=== PATIENT | female | born 1960 | race Caucasian/White ===

== ENCOUNTER 2018-04-08 09:20 | Emergency (ER) | payer MEDICAID ==
[~2018-04-08] VITALS: Ht 165.1 cm; Wt 95.0 kg
[~2018-04-08 09:20] MED LIST: ALBU18HF2 INH; ATI1T PO; BECL8.7A7 INH; ESTR10TA VG; LAMO100T2 PO; METF500T PO; SIMV40TA PO; VENL75TA4 PO
[2018-04-08] MEDS ORDERED: LORazepam 2 mg/ml vial IV ONE (09:45)
[2018-04-08 10:10] LABS: BASOPHILS % (AUTO) 0.4 % (0-1); EOSINOPHILS % (AUTO) 0.4 % (0-6); HEMATOCRIT 46.1 % (35.0-45.0); HEMOGLOBIN 15.7 g/dl (12.0-16.0); LYMPHOCYTES # (AUTO) 1.9 X10'3 (1.1-4.8); LYMPHOCYTES % (AUTO) 25.5 % (21-51); MEAN CORPUSCULAR HEMOGLOBIN 30.9 PG (27.0-31.0); MEAN PLATELET VOLUME 8.9 FL (7.4-10.4); MONOCYTES # (AUTO) 0.4 X10'3 (0-0.9); MONOCYTES % (AUTO) 4.8 % (2-12); NEUTROPHILS # (AUTO) 5.2 X10'3 (1.8-7.7); NEUTROPHILS % (AUTO) 68.9 % (42-75); PLATELET COUNT 174 X10'3 (140-440); RED BLOOD COUNT 5.07 X10'6 (4.20-5.60); RED CELL DISTRIBUTION WIDTH 13.1 % (11.5-14.5); WHITE BLOOD COUNT 7.6 X10'3 (4.5-11.0)
[2018-04-08 10:19] LABS: ALANINE AMINOTRANSFERASE 33 U/L (12-78); ALBUMIN 4.3 G/DL (3.4-5.0); ALBUMIN/GLOBULIN RATIO 1.3 (1.1-1.5); ALKALINE PHOSPHATASE 93 IU/L (46-116); ANION GAP 12 (8-16); ASPARTATE AMINO TRANSFERASE 29 U/L (10-37); BILIRUBIN,TOTAL 0.4 MG/DL (0.1-1.0); BLOOD UREA NITROGEN 19 MG/DL (7-18); BUN/CREATININE RATIO 26.4 (6.6-38.0); CALCIUM 9.4 MG/DL (8.5-10.1); CHLORIDE 104 MMOL/L (99-107); CREATININE 0.72 MG/DL (0.40-0.90); GLUCOSE 105 MG/DL (70-104); SODIUM 142 MMOL/L (135-145); TOTAL CARBON DIOXIDE 25.9 MMOL/L (24-32); TOTAL PROTEIN 7.6 G/DL (6.4-8.2); eGFR 83 ML/MIN
[2018-04-08] MEDS ORDERED: hydrOXYzine 10 MG tablet PO PRN (10:45)
[2018-04-08 13:25] VITALS: BP 117/64
== END 2018-04-08 13:30 | disposition home or self-care (01) ==
LOC: ER 09:20
DX: F41.9 Anxiety disorder, unspecified (principal); R06.02 Shortness of breath; E78.00 Pure hypercholesterolemia, unspecified; E11.9 Type 2 diabetes mellitus without complications; F12.90 Cannabis use, unspecified, uncomplicated; Z90.49 Acquired absence of other specified parts of digestive tract; Z90.710 Acquired absence of both cervix and uterus; Z88.8 Allergy status to other drugs, medicaments and biological substances; Z79.899 Other long term (current) drug therapy
CPT/HCPCS: 36415; 71045; 80053; 85025; 93005; 96374; 99285; J2060; 84484

== ENCOUNTER 2021-09-07 06:51 | Inpatient (IN) | payer MEDICAID ==
[2021-09-02 13:53] LABS: BASOPHILS # (AUTO) 0.1 X10'3 (0-0.2); BASOPHILS % (AUTO) 0.6 % (0-1); EOSINOPHILS % (AUTO) 0.3 % (0-6); LYMPHOCYTES # (AUTO) 2.6 X10'3 (1.1-4.8); LYMPHOCYTES % (AUTO) 31.5 % (21-51); MEAN CORPUSCULAR HEMOGLOBIN 31.9 PG (27.0-31.0); MEAN CORPUSCULAR HGB CONC 34.6 g/dL (33.0-36.5); MEAN CORPUSCULAR VOLUME 92.4 FL (78-98); MEAN PLATELET VOLUME 8.4 FL (7.4-10.4); MONOCYTES # (AUTO) 0.5 X10'3 (0-0.9); MONOCYTES % (AUTO) 6.4 % (2-12); NEUTROPHILS # (AUTO) 5.1 X10'3 (1.8-7.7); NEUTROPHILS % (AUTO) 61.2 % (42-75); PRE OP HEMATOCRIT 48.1 % (35.0-45.0); PRE OP HEMOGLOBIN 16.6 g/dL (12.0-16.0); PRE OP PLATELET COUNT 159 X10'3 (140-440); RED CELL DISTRIBUTION WIDTH 12.5 % (11.5-14.5)
[2021-09-02 14:16] LABS: ALBUMIN 4.6 G/DL (3.4-5.0); ALBUMIN/GLOBULIN RATIO 1.7 (1.1-1.5); ALKALINE PHOSPHATASE 105 IU/L (46-116); BLOOD UREA NITROGEN 13 MG/DL (7-18); BUN/CREATININE RATIO 17.3 (6.6-38.0); CHLORIDE 102 MMOL/L (99-107); CREATININE 0.75 MG/DL (0.40-0.90); PRE OP ALT 42 U/L (30-65); PRE OP ANION GAP 12 (8-16); PRE OP AST 29 U/L (10-37); PRE OP BILIRUB, TOTAL 0.3 MG/DL (0.0-1.0); PRE OP GLUCOSE 172 MG/DL (70-104); PRE OP SODIUM 140 MMOL/L (135-145); TOTAL PROTEIN 7.3 G/DL (6.4-8.2); eGFR 79 ML/MIN
[~2021-09-07] VITALS: Ht 165.1 cm; Wt 112.0 kg
[2021-09-07] VITALS (21 sets, daily range): BP systolic 90–125; BP diastolic 38–87
[2021-09-07] MEDS: potassium cl 20mEq in 1/2 NS 1,000 ML IV SCH ×2 (06:50→14:50)
[~2021-09-07 06:51] MED LIST changes: -ATI1T PO; -BECL8.7A7 INH; -ESTR10TA VG; +FLUO20CA39 PO; +GABA600T13 PO; +HYDROmorphone 1 mg/ml syringe IV PRN; +HYDROmorphone inj. 0.5 MG/0.5 ML DISP.SYRIN IV PRN; -METF500T PO; +SIMV-42 PO; -SIMV40TA PO; -VENL75TA4 PO; +acetaminophen 325mg tablet PO ONE; +acetaminophen 325mg tablet PO PRN; +bisacodyl 10mg suppository rectal RC PRN; +cefazolin/dext.iso 2gm/50ml IV ONE; +celeCOXIB 100mg capsule PO ONE; +diphenhydrAMINE 25mg capsule PO PRN; +famotidine 20mg tablet PO ONE; +gabapentin 300mg capsule PO ONE; +magnesium hydroxide 30ml (MOM) UD suspension PO PRN; +metoclopramide 5 mg/ml inj IV ONE; +ondansetron/PF 4mg/2ml inj IV PRN; +oxyCODONE SR 10mg (sust. release) tab -2 tabs (20mg) PO ONE; +oxyCODONE/APAP 10/325mg tablet PO PRN; +ringers solution, lacted 1,000 ML IV SCH; +tranexamic acid inj. 1,000 MG in 0.7% saline 100 ML PMX IV ONE; +vancomycin 1,500 MG in NS 300ml IV soln IV ONE
[2021-09-07] MEDS: lamoTRIgine 100mg tablet PO SCH ×2 (07:00→17:54)
[2021-09-07] MEDS: albuterol 2.5 MG/3 ML nebule NEB SCH ×2 (09:00→23:09)
[2021-09-07] MEDS ORDERED: morphine 2 MG/ML inj. syringe IV PRN (10:30)
[2021-09-07] MEDS ORDERED: proCHLORperazine 10 MG/2 ml inj IV PRN (10:30)
[2021-09-07] MEDS ORDERED: ondansetron/PF 4mg/2ml inj IV PRN (10:30)
[2021-09-07] MEDS ORDERED: ringers solution, lacted 1,000 ML IV SCH (10:30)
[2021-09-07] MEDS ORDERED: meperidine/PF 25mg/ml syringe IV PRN ×3 (10:30)
[2021-09-07] MEDS ORDERED: morphine 4 MG/ML inj SYRINge IV PRN (10:30)
[2021-09-07] MEDS ORDERED: epiNEPHrine 1 mg/ml inj ONE (11:11)
[2021-09-07] MEDS ORDERED: ketorolac trometh. 30mg/ml inj. ONE (11:11)
[2021-09-07] MEDS ORDERED: ROPIVAcaine 0.5% (5mg/ml) 30ml vial ONE ×2 (11:12→12:35)
[2021-09-07] MEDS ORDERED: cloNIDine hcl/PF 100mcg/ml inj ONE (11:12)
[2021-09-07] MEDS ORDERED: FENTANYL CITRATE/PF 50 MCG/1 ML VIAL ONE (11:33)
[2021-09-07] MEDS ORDERED: MIDAZolam 1 MG/ML 5ML VIAL ONE (11:33)
[2021-09-07] MEDS ORDERED: diphenhydrAMINE 50 mg/ml inj ONE (11:44)
[2021-09-07] MEDS ORDERED: vancomycin 1,000mg inj ONE (12:10)
[2021-09-07] MEDS ORDERED: dexamethasone sod phosphate 4mg/ml inj. ONE (12:35)
[2021-09-07] MEDS ORDERED: ROPIVAcaine 0.2%/PF PUMP/bolus 545 ML ADDCANAL SCH (12:40)
[2021-09-07] MEDS ORDERED: ROPIVAcaine 0.2% (10 MG/5 ML) BOLUS INJECTION ADDCANAL PRN (12:40)
[2021-09-07] MEDS ORDERED: tranexamic acid 1gm/0.7% sal. 100 ML IV ONE (15:30)
--- NOTE | 2021-09-07 16:25 | NUR ---
PATIENT HAS MET ALL CRITERIA FOR TRANSFER TO THE SURGICAL/[facility]/PCU/ORTHO/ICU FLOOR. VSS. DRESSINGS INTACT. BED LOW, CALL LIGHT PRESENT AND 2 RAILS UP. RN PRESENT TO ACCEPT CARE OF PATIENT AND REPORT HAS BEEN CALLED. ALL QUESTIONS ANSWERED TO ACCEPTING MIC JORD[facility]. ONE BAG OF BELONGINGS SENT WITH PATIENT. Addendum: 09/07/21 at 1652 by Pranay Duenas RN RN Amended: Links added.
--- NOTE | 2021-09-07 16:59 | NUR ---
cell phone returned to pt via osiel morales
[2021-09-07] MEDS: ceFAZolin 2gm in dextrose, iso 50 ML IV SCH (18:57)
[2021-09-07] MEDS: gabapentin 300mg capsule PO SCH (20:38)
[2021-09-07] MEDS: ascorbic acid 500mg tablet PO SCH (20:38)
[2021-09-07] MEDS: oxyCODONE/APAP 10/325mg tablet PO PRN (20:39)
[2021-09-07] MEDS: FLUoxetine 20mg capsule PO SCH (20:39)
[2021-09-07] MEDS ORDERED: atorvastatin 10mg tablet PO SCH (21:00)
[2021-09-07] MEDS ORDERED: sennosides 8.6mg tablet PO SCH (21:00)
[2021-09-08] MEDS: ceFAZolin 2gm in dextrose, iso 50 ML IV SCH (02:21)
[2021-09-08] MEDS: potassium cl 20mEq in 1/2 NS 1,000 ML IV SCH (02:21)
[2021-09-08] MEDS: oxyCODONE/APAP 10/325mg tablet PO PRN ×2 (03:17→08:36)
[2021-09-08 06:23] LABS: BASOPHILS % (AUTO) 0.1 % (0-1); EOSINOPHILS % (AUTO) 0 % (0-6); HEMATOCRIT 40.3 % (35.0-45.0); HEMOGLOBIN 14.3 g/dl (12.0-16.0); LYMPHOCYTES # (AUTO) 1.1 X10'3 (1.1-4.8); LYMPHOCYTES % (AUTO) 11.8 % (21-51); MEAN CORPUSCULAR HEMOGLOBIN 32.9 PG (27.0-31.0); MEAN CORPUSCULAR HGB CONC 35.4 g/dL (33.0-36.5); MEAN CORPUSCULAR VOLUME 93.1 FL (78-98); MEAN PLATELET VOLUME 9.1 FL (7.4-10.4); MONOCYTES # (AUTO) 0.6 X10'3 (0-0.9); MONOCYTES % (AUTO) 6.6 % (2-12); NEUTROPHILS # (AUTO) 7.6 X10'3 (1.8-7.7); NEUTROPHILS % (AUTO) 81.5 % (42-75); PLATELET COUNT 139 X10'3 (140-440); RED BLOOD COUNT 4.33 X10'6 (4.20-5.60); RED CELL DISTRIBUTION WIDTH 12.5 % (11.5-14.5); WHITE BLOOD COUNT 9.4 X10'3 (4.5-11.0)
--- NOTE | 2021-09-08 06:30 | NUR ---
Problems reprioritized. Patient report given, questions answered & plan of care reviewed with BEN HAILE.
--- NOTE | 2021-09-08 06:49 | NUR ---
Patient in room [facility]. I have received report from Mary Ann HAILE and had the opportunity to ask questions and assume patient care.
[2021-09-08 06:58] LABS: ANION GAP 9 (8-16); CHLORIDE 103 MMOL/L (99-107); POTASSIUM 4.5 MMOL/L (3.5-5.1); SODIUM 138 MMOL/L (135-145); TOTAL CARBON DIOXIDE 26.1 MMOL/L (24-32)
[2021-09-08 08:00] VITALS: BP 125/90
[2021-09-08] MEDS ORDERED: multivitamins, therapeutics tablet PO SCH (08:00)
[2021-09-08] MEDS ORDERED: aspirin 325mg tablet PO SCH (08:30)
[2021-09-08] MEDS: gabapentin 300mg capsule PO SCH (08:30)
[2021-09-08] MEDS: FLUoxetine 20mg capsule PO SCH (08:31)
[2021-09-08] MEDS: lamoTRIgine 100mg tablet PO SCH (08:32)
[2021-09-08] MEDS: ascorbic acid 500mg tablet PO SCH (08:34)
[2021-09-08] MEDS: albuterol 2.5 MG/3 ML nebule NEB SCH (08:52)
--- NOTE | 2021-09-08 08:53 | NUR ---
PT REFUSED 0900 SVN. R/A SPO2 94% WITHOUT SOB
--- NOTE | 2021-09-08 10:16 | NUR ---
Pt DC to home. Pt is A & O x4 and in nonapparent distress. pt verbalizes understanding of ALL Dc orders and is able to teach back PT instructions. pt is elated to go home. Pt educated on LEO dressing, OnQ removal and specific instructions given by Dr Collins. pt knows the importance of following up with Dr Collins. pt wheeled to the front where brother took her home to bend.
[2021-09-08] MEDS ORDERED: celeCOXIB 100mg capsule PO SCH (20:00)
== END 2021-09-08 10:05 | disposition home or self-care (01) | DRG 326 ==
LOC: UNDOADMIN 08:22 → PAS IN 08:22 → EDSTATUS 10:00 → SUR 3N 16:39
PROVIDERS: ADMIT Orthopaedic Surgery; ATTEND Orthopaedic Surgery
PROC: 5A09357 Assistance with Respiratory Ventilation, Less than 24 Consecutive Hours, Continuous Positive Airway Pressure (ICD-10-PCS; 2021-09-07)
PROC: 3E0T3BZ Introduction of Anesthetic Agent into Peripheral Nerves and Plexi, Percutaneous Approach (ICD-10-PCS; 2021-09-07)
PROC: 3E0T33Z Introduction of Anti-inflammatory into Peripheral Nerves and Plexi, Percutaneous Approach (ICD-10-PCS; 2021-09-07)
PROC: 0SRC0J9 Replacement of Right Knee Joint with Synthetic Substitute, Cemented, Open Approach (ICD-10-PCS; principal; 2021-09-07 11:34)
DX: M17.11 Unilateral primary osteoarthritis, right knee (principal); E66.01 Morbid (severe) obesity due to excess calories; J45.909 Unspecified asthma, uncomplicated; M54.2 Cervicalgia; Z72.0 Tobacco use; Z96.642 Presence of left artificial hip joint; Z68.41 Body mass index [BMI] 40.0-44.9, adult; Z79.899 Other long term (current) drug therapy
CPT/HCPCS: 36415; 71045; 73560; 80051; 80053; 82948; 85025; 86885; 86900; 86901; 87081; 94760; 97110; 97161; 97530; A4215; A7000; C1713; C1776; G0378; J0171; J0690; J0735; J1100; J1200; J1885; J2250; J2765; J2795; J3010; J3370; J3480; J3490; J7040; J7120; U0003; U0005

== ENCOUNTER 2021-09-30 17:23 | Emergency (ER) | payer MEDICAID ==
[~2021-09-30] VITALS: Ht 165.1 cm; Wt 112.3 kg
[~2021-09-30 17:23] MED LIST changes: -HYDROmorphone 1 mg/ml syringe IV PRN; -HYDROmorphone inj. 0.5 MG/0.5 ML DISP.SYRIN IV PRN; -acetaminophen 325mg tablet PO ONE; -acetaminophen 325mg tablet PO PRN; -bisacodyl 10mg suppository rectal RC PRN; -cefazolin/dext.iso 2gm/50ml IV ONE; -celeCOXIB 100mg capsule PO ONE; -diphenhydrAMINE 25mg capsule PO PRN; -famotidine 20mg tablet PO ONE; -gabapentin 300mg capsule PO ONE; -magnesium hydroxide 30ml (MOM) UD suspension PO PRN; -metoclopramide 5 mg/ml inj IV ONE; -ondansetron/PF 4mg/2ml inj IV PRN; -oxyCODONE SR 10mg (sust. release) tab -2 tabs (20mg) PO ONE; -oxyCODONE/APAP 10/325mg tablet PO PRN; -ringers solution, lacted 1,000 ML IV SCH; -tranexamic acid inj. 1,000 MG in 0.7% saline 100 ML PMX IV ONE; -vancomycin 1,500 MG in NS 300ml IV soln IV ONE
[2021-09-30 18:43] VITALS: BP 145/84
[2021-09-30] MEDS ORDERED: sulfamethoxazole/trimethoprim DS (800/160mg) tablet PO ONE (18:45)
[2021-09-30] MEDS ORDERED: cephalexin 250mg capsule PO ONE (18:45)
[2021-09-30] MEDS ORDERED: CEPH-585 PO (18:57)
[2021-09-30] MEDS ORDERED: SULF1TAB49 PO (18:57)
== END 2021-09-30 19:11 | disposition home or self-care (01) ==
LOC: ER 17:25
DX: T81.9XXA Unspecified complication of procedure, initial encounter (principal); L03.115 Cellulitis of right lower limb; E78.00 Pure hypercholesterolemia, unspecified; E11.9 Type 2 diabetes mellitus without complications; F31.9 Bipolar disorder, unspecified; F12.10 Cannabis abuse, uncomplicated; Z79.899 Other long term (current) drug therapy; Z88.8 Allergy status to other drugs, medicaments and biological substances
CPT/HCPCS: 99283

== ENCOUNTER 2025-04-04 05:26 | Emergency (ER) | payer MEDICAID, OTHER ==
[~2025-04-04] VITALS: Ht 165.1 cm; Wt 80.0 kg
[~2025-04-04 05:26] MED LIST changes: -FLUO20CA39 PO; +FLUO20CA41 PO; +GABA-1405 PO; -GABA600T13 PO
[2025-04-04 06:03] LABS: LEUKOCYTE ESTERASE ,URINE NEGATIVE (Neg); NITRITES, URINE NEGATIVE (Neg); OCCULT BLOOD,URINE MODERATE (Neg)
[2025-04-04 06:11] LABS: MUCUS STRANDS MODERATE /LPF (Neg); SQUAMOUS EPITHELIAL CELL,UR FEW /LPF (FEW); UA COLLECTION TYPE NON-SPECIFIED
[2025-04-04 06:13] LABS: CAL OXALATE CRYSTALS 4+ /HPF (NEGATIVE)
--- NOTE | 2025-04-04 06:22 | Physician Documentation ---
History of Present Illness Chief Complaint: Abdominal Pain Stated Complaint: SEVERE LOWER BACK PAIN Time Seen by MD: 05:43 Primary Medical Doctor: [facility] Source: patient Mode of Arrival: POV Exam Limitations: no limitations HPI Ms. Fernandes is a 65 y/o female who presents to the ED with c/o RUQ ABD pain. She states that this is chronic and her PCP has diagnosed her with "liver issues." She is unsure what the actual diagnosis is but that her PCP wants her to have a "fibrous scan" of her liver and that no one around here does the test. She states that she is supposed to follow-up with [facility] to possibly have the test done. She states that this episode of pain woke her at 0200 this morning and has slowly started to get better. She now rates the pain as a 2/10. She endorses nausea, but denies vomiting/diarrhea/constipation. Denies BRBPR or melena. No dysuria or hematuria. No recent unexplained weight loss, but states that her appetite is poor due to the nausea that worsens after eating. No known sick contacts. No recent travel. Medication Reconciliation Allergies: Coded Allergies: estrogens, conjugated (Verified Allergy, Mild, RASH, 09/06/21) aripiprazole (Verified Adverse Reaction, Unknown, Tardive dyskinesia, 09/06/21) Scheduled Albuterol Sulfate (Ventolin Hfa), 2 PUFFS INH Q4HPRN, (Reported) Fluoxetine Hcl* (Prozac*), 1 CAP PO BID, (Reported) Gabapentin (Gabapentin), 1 TAB PO Q8H, (Reported) Lamotrigine* (Lamictal*), 1 TAB PO BIDAC, (Reported) Simvastatin* (Zocor*), 1 TAB PO HS, (Reported) Past Medical History Past Medical History: High Cholesterol, Diabetes, Anxiety, Bipolar, Depression Past Surgical History: cholecystectomy, hysterectomy Alcohol Use: None Drug Use: marijuana Lives with: Spouse Lives In: Home Review of Systems ROS As stated above in the HPI, otherwise all systems are reviewed and negative. Physical Exam Vital Signs: RN Vital Signs have been reviewed: Yes, Temperature: 97.2, Source: Temporal, Heart Rate: 90, Respiratory Rate: 16, BP: 140/86, Pulse Oximetry: 100, Weight: 80.000 Oxygen Flow Rate: 0 Physical Exam VITALS: Reviewed and as above. GENERAL: Alert, no apparent distress. HEENT: Normocephalic, atraumatic, PERRL, EOMI, dry mucosa, no erythema RESPIRATORY: Lungs clear, normal breath sounds, no respiratory distress. CHEST: No accessory muscle use, no retractions CV: Regular rate, rhythm, no edema, no murmur, No: JVD GI: Soft, tenderness to the RUQ with palpation. Bowels sounds present, no rebound, guarding, or rigidity. No pulsatile or palpable masses. BACK: No CVA tenderness, or swelling MUSCULOSKELETAL No deformities, no edema SKIN: Warm and dry, no rash NEURO: Oriented x4, No motor or sensory deficit PSYCH: Normal mood and affect, no agitation Progress Results/Orders Results/Orders Orders - RAZ TEJEDA MD Ammonia (04/04/25 05:57) Vital Signs 04/04/25 04/04/25 05:35 06:00 Temp 97.2 Pulse 90 Resp 18 16 B/P (MAP) 140/86 Pulse Ox 100 O2 Flow Rate 0 Laboratory Tests Test 04/04/25 05:45 Urine Specimen Description Non-specified Urine Color Yellow Urine Clarity Clear Urine pH 5.5 Urine Specific [place] 1.020 Urine Protein Negative Urine Glucose (UA) Negative Urine Ketones Trace H Urine Occult Blood Moderate H Urine Nitrite Negative Urine Bilirubin Negative Urine Urobilinogen 0.2 Urine Leukocyte Esterase Negative Urine RBC 0-2 Urine WBC 0-4 Urine Squamous Epithelial Cells Few Urine Calcium Oxalate Crystals 4+ Urine Bacteria 2+ Urine Mucus Moderate Urine Culture Indicated Not ind Volume Urine Centrifuged 10 ml Urine Comment Medical Decision Making Differential Dx:Considerations: Include: AAA, Aortic dissection, Appendicitis, Bowel obstruction, Constipation, Esophagitis, Gastritis/PUD, GI hemorrhage, Hernia, Hepatitis, Inflammatory BD, Ischemic bowel, Pancreatitis, Porphyria, Urolithiasis Additional Comments While here in the ED, she remained hemodynamically normal with ABC's intact and in NAD. She is afebrile and nontoxic. She has RUQ TTP, but has normal BS and is without rebounding or guarding. I reviewed her labs and she has normal LFT's and a normal lipase. No leukocytosis or left shift noted. Her lytes are within normal limits. Clinically, she does not appear to have an acute surgical ABD. She had serial ABD exams done here in the ED with improvement in symptoms. No clear indication for imaging. She is safe for d/c home with outpatient follow- up. She was given follow-up and return instructions. She voiced understanding and agreement with d/c instructions. Departure Disposition: HOME / SELF CARE / HOMELESS Impression: Primary Impression: Abdominal pain Condition: Improved Discharge Instructions: Abdominal Pain (Nonspecific) Referrals: NO PRIMARY CARE PROVIDER (PCP) Prescriptions ONDANSETRON ODT 4mg tablet (ONDANSETRON ODT) 4 Mg Tab.rapdis 1 TAB PO Q6H PRN PRN for nausea/vomiting for 4 Days, #20 TAB 0 Refills Prov: RAZ TEJEDA MD 04/04/25 Comments Please follow up with her primary care provider. Please return to the emergency department with any worsening or recurrent symptoms or any additional concerning symptoms that we discussed here today. Education Educated: Patient Educated regarding: diagnosis, treatment Signature Scribe Signature: N/A Attestation: N/A RAZ TEJEDA MD Apr 04, 2025 06:22
[2025-04-04 06:32] VITALS: BP 128/82; PULSE 70; TEMP 97.2; O2SAT 97
[2025-04-04 06:46] LABS: MEAN PLATELET VOLUME 8.6 FL (7.4-10.4); RED CELL DISTRIBUTION WIDTH 12.8 % (11.5-14.5)
[2025-04-04 07:01] LABS: CREATININE 0.66 MG/DL (0.40-0.90); TOTAL CARBON DIOXIDE 28.2 MMOL/L (24-32); eCRCL 77 ML/MIN; eGFR 90 ML/MIN
[2025-04-04] MEDS ORDERED: ONDA-243 PO (07:20)
[2025-04-04] MEDS: ondansetron/PF 4mg/2ml inj IV ONE (07:25)
[2025-04-04] MEDS: fentaNYL/PF 50MCG/1 ML 2ML syringe IV ONE (07:25)
[2025-04-04 08:10] VITALS: RESP 16
== END 2025-04-04 08:15 | disposition home or self-care (01) ==
LOC: ER 05:27
DX: R10.11 Right upper quadrant pain (principal); R19.7 Diarrhea, unspecified; E11.9 Type 2 diabetes mellitus without complications; E78.00 Pure hypercholesterolemia, unspecified; F41.9 Anxiety disorder, unspecified; F31.9 Bipolar disorder, unspecified; F12.90 Cannabis use, unspecified, uncomplicated; Z88.8 Allergy status to other drugs, medicaments and biological substances; Z90.49 Acquired absence of other specified parts of digestive tract; Z90.710 Acquired absence of both cervix and uterus
CPT/HCPCS: 36415; 80053; 81001; 82140; 83690; 85025; 96374; 96375; 99284; J2405; J3010